=== PATIENT | female | born 1970 | race Caucasian/White ===

== ENCOUNTER → 2023-07-26 09:28 | Outpatient (REF) | payer BC, SELFPAY | LOC: HWEVLT 09:28 | PROVIDERS: ATTENDING PHYSICIAN Radiology Vascular & Interventional Radiology | DX: I83.893 Varicose veins of bilateral lower extremities with other complications (principal) | CPT/HCPCS: 93970 ==

== ENCOUNTER → 2023-10-04 08:40 | Outpatient (REF) | payer BC, SELFPAY ==
[2023-10-04 09:55] LABS: % Basophils 1.2 % (0-2); % Eosinophils 4.7 % (0-6); % Immature Granulocytes 0.2 % (0-0.5); % Lymphocytes 32.7 % (20.5-51.1); % Monocytes 11.7 % (1.7-9.3); % Neutrophils 49.5 % (42.2-75.2); Absolute Basophils 0.1 10^3/uL (0-0.2); Absolute Eosinophils 0.2 10^3/uL (0-0.7); Absolute Lymphocytes 1.4 10^3/uL (1.2-3.4); Absolute Monocytes 0.5 10^3/uL (0.1-0.6); Absolute Neutrophils 2.1 10^3/uL (1.4-6.5); Hematocrit 37.2 % (37.0-47.0); Hemoglobin 12.7 g/dL (12.0-16.0); Mean Corp Hgb Conc. 34.1 g/dL (33.0-37.0); Mean Corpuscular Hgb 32.7 pg (27.0-31.0); Mean Corpuscular Volume 95.9 fL (81.0-99.0); Mean Platelet Volume 8.9 fL (7.4-10.4); Nucleated Red Blood Cells % 0 %; Platelet Count 301 10^3/uL (130-400); Red Blood Cell Count 3.88 10^6/uL (4.20-5.40); Red Cell Dist. Width 12.9 % (11.5-14.5); White Blood Cell Count 4.3 10^3/uL (4.8-10.8)
[2023-10-04 10:31] LABS: ALT (SGPT) 17 U/L (0-35); AST (SGOT) 29 U/L (14-36); Albumin 4.5 g/dl (3.5-5.0); Alkaline Phosphatase 50 U/L (38-126); Blood Urea Nitrogen 18 mg/dl (7-17); Calcium 10.4 mg/dl (8.4-10.2); Carbon Dioxide 29 mmol/L (22-30); Chloride 100 mmol/L (98-107); Glucose 85 mg/dl (70-99); Potassium 4.5 mmol/L (3.5-5.1); Sodium 136 mmol/L (135-145); Total Bilirubin 0.6 mg/dl (0.2-1.3); Total Protein 7.4 g/dl (6.3-8.2); eGFR > 60.00
[2023-10-04 10:42] LABS: FSH 57.9 mIU/ml; Free T4 0.97 ng/dl (0.78-2.19)
[2023-10-04 10:52] LABS: Free T3 3.29 pg/ml (2.77-5.27)
[2023-10-04 10:56] LABS: TSH 1.05 uIU/ml (0.47-4.68)
[2023-10-04 10:58] LABS: Estradiol 128.2 pg/ml
== END ==
LOC: REG 08:40
PROVIDERS: ATTENDING PHYSICIAN Family Medicine; FAMILY PHYSICIAN Nurse Practitioner Family
DX: D05.80 Other specified type of carcinoma in situ of unspecified breast (principal); E28.39 Other primary ovarian failure; R68.82 Decreased libido; E03.9 Hypothyroidism, unspecified
CPT/HCPCS: 36415; 80053; 82670; 83001; 84403; 84439; 84443; 84481; 85025

== ENCOUNTER → 2024-01-03 17:03 | Outpatient (REF) | payer BC, SELFPAY ==
[2024-01-03 19:03] LABS: Estradiol 31.1 pg/ml
== END ==
LOC: REG 17:03
PROVIDERS: ATTENDING PHYSICIAN Nurse Practitioner Adult Health; FAMILY PHYSICIAN Nurse Practitioner Family
DX: E28.39 Other primary ovarian failure (principal); R68.82 Decreased libido
CPT/HCPCS: 36415; 82670; 84270; 84402; 84403

== ENCOUNTER → 2024-01-25 12:28 | Outpatient (REF) | payer BC, SELFPAY | LOC: WDC 12:28 | PROVIDERS: ATTENDING PHYSICIAN Obstetrics & Gynecology Gynecology; FAMILY PHYSICIAN Nurse Practitioner Family | DX: Z12.31 Encounter for screening mammogram for malignant neoplasm of breast (principal) | CPT/HCPCS: 77063; 77067 ==

== ENCOUNTER → 2024-04-02 09:53 | Outpatient (REF) | payer BC, SELFPAY ==
[2024-04-05 07:12] LABS: HPV, High Risk Not Detected; HPV, High Risk Source Cervical
== END ==
LOC: CPAP 09:53
PROVIDERS: ATTENDING PHYSICIAN Obstetrics & Gynecology Gynecology
DX: Z01.419 Encounter for gynecological examination (general) (routine) without abnormal findings (principal)
CPT/HCPCS: 87624

== ENCOUNTER → 2024-04-05 08:59 | Outpatient (REF) | payer BC, SELFPAY ==
[2024-04-05 10:01] LABS: % Basophils 1.3 % (0-2); % Eosinophils 6.9 % (0-6); % Immature Granulocytes 0.2 % (0-0.5); % Lymphocytes 34.5 % (20.5-51.1); % Monocytes 11.1 % (1.7-9.3); Absolute Basophils 0.1 10^3/uL (0-0.2); Absolute Eosinophils 0.3 10^3/uL (0-0.7); Absolute Lymphocytes 1.6 10^3/uL (1.2-3.4); Absolute Monocytes 0.5 10^3/uL (0.1-0.6); Absolute Neutrophils 2.1 10^3/uL (1.4-6.5); Hematocrit 35.4 % (37.0-47.0); Hemoglobin 12.1 g/dL (12.0-16.0); Mean Corp Hgb Conc. 34.2 g/dL (33.0-37.0); Mean Corpuscular Hgb 31.7 pg (27.0-31.0); Mean Corpuscular Volume 92.7 fL (81.0-99.0); Mean Platelet Volume 9.1 fL (7.4-10.4); Nucleated Red Blood Cells % 0 %; Platelet Count 297 10^3/uL (130-400); Red Blood Cell Count 3.82 10^6/uL (4.20-5.40); Red Cell Dist. Width 12.3 % (11.5-14.5); White Blood Cell Count 4.6 10^3/uL (4.8-10.8)
[2024-04-05 10:48] LABS: Progesterone 4.26 ng/ml
[2024-04-05 11:04] LABS: Estradiol 52.8 pg/ml
== END ==
LOC: REG 08:59
PROVIDERS: ATTENDING PHYSICIAN Nurse Practitioner Primary Care; FAMILY PHYSICIAN Nurse Practitioner Family
DX: E28.39 Other primary ovarian failure (principal); R68.82 Decreased libido
CPT/HCPCS: 36415; 82642; 82670; 83001; 84144; 84403; 85025

== ENCOUNTER → 2024-07-01 09:48 | Outpatient (REF) | payer BC, SELFPAY ==
[2024-07-01 11:29] LABS: % Eosinophils 5.3 % (0-6); % Immature Granulocytes 0.4 % (0-0.5); % Monocytes 10.2 % (1.7-9.3); % Neutrophils 59.1 % (42.2-75.2); Absolute Basophils 0.1 10^3/uL (0-0.2); Absolute Eosinophils 0.3 10^3/uL (0-0.7); Absolute Lymphocytes 1.2 10^3/uL (1.2-3.4); Absolute Monocytes 0.5 10^3/uL (0.1-0.6); Hematocrit 36.7 % (37.0-47.0); Hemoglobin 12.4 g/dL (12.0-16.0); Mean Corp Hgb Conc. 33.8 g/dL (33.0-37.0); Mean Corpuscular Hgb 32.5 pg (27.0-31.0); Mean Corpuscular Volume 96.3 fL (81.0-99.0); Nucleated Red Blood Cells % 0 %; Platelet Count 291 10^3/uL (130-400); Red Blood Cell Count 3.81 10^6/uL (4.20-5.40); Red Cell Dist. Width 12.9 % (11.5-14.5); White Blood Cell Count 5.1 10^3/uL (4.8-10.8)
[2024-07-01 11:54] LABS: FSH 22.7 mIU/ml
[2024-07-01 12:11] LABS: Estradiol 143.8 pg/ml
== END ==
LOC: REG 09:48
PROVIDERS: ATTENDING PHYSICIAN Registered Nurse; FAMILY PHYSICIAN Nurse Practitioner Family
DX: E28.39 Other primary ovarian failure (principal); R68.82 Decreased libido; D50.8 Other iron deficiency anemias
CPT/HCPCS: 36415; 82642; 82670; 83001; 84403; 85025

== ENCOUNTER → 2024-07-29 11:11 | Outpatient (REF) | payer BC, SELFPAY | LOC: REG 11:11 | PROVIDERS: ATTENDING PHYSICIAN Nurse Practitioner Family | DX: M54.50 Low back pain, unspecified (principal) | CPT/HCPCS: 72110; 72220 ==

== ENCOUNTER → 2024-09-18 08:48 | Outpatient (REF) | payer BC, SELFPAY ==
[2024-09-18 09:37] LABS: % Eosinophils 5.6 % (0-6); % Immature Granulocytes 0.4 % (0-0.5); % Lymphocytes 25.6 % (20.5-51.1); % Monocytes 9.7 % (1.7-9.3); % Neutrophils 57.7 % (42.2-75.2); Absolute Basophils 0.1 10^3/uL (0-0.2); Absolute Eosinophils 0.3 10^3/uL (0-0.7); Absolute Lymphocytes 1.3 10^3/uL (1.2-3.4); Absolute Monocytes 0.5 10^3/uL (0.1-0.6); Absolute Neutrophils 2.9 10^3/uL (1.4-6.5); Hematocrit 36.3 % (37.0-47.0); Hemoglobin 12.2 g/dL (12.0-16.0); Mean Corp Hgb Conc. 33.6 g/dL (33.0-37.0); Mean Corpuscular Hgb 32.2 pg (27.0-31.0); Mean Corpuscular Volume 95.8 fL (81.0-99.0); Mean Platelet Volume 8.7 fL (7.4-10.4); Nucleated Red Blood Cells % 0 %; Platelet Count 307 10^3/uL (130-400); Red Blood Cell Count 3.79 10^6/uL (4.20-5.40)
[2024-09-18 10:34] LABS: Estradiol 182.6 pg/ml
[2024-09-21 07:06] LABS: 5-a-Dihydrotestosterone, LC-MS 54.7 pg/mL (24.0-208.0)
== END ==
LOC: REG 08:48
PROVIDERS: ATTENDING PHYSICIAN Registered Nurse; FAMILY PHYSICIAN Nurse Practitioner Family
DX: R79.89 Other specified abnormal findings of blood chemistry (principal); Z01.84 Encounter for antibody response examination
CPT/HCPCS: 36415; 82642; 82670; 83001; 84270; 84402; 84403; 85025; 86765

== ENCOUNTER → 2024-12-10 08:48 | Outpatient (REF) | payer BC, SELFPAY ==
[2024-12-10 09:23] LABS: % Basophils 1.1 % (0-2); % Eosinophils 6.4 % (0-6); % Immature Granulocytes 0.2 % (0-0.5); % Monocytes 9.6 % (1.7-9.3); % Neutrophils 50.7 % (42.2-75.2); Absolute Basophils 0.1 10^3/uL (0-0.2); Absolute Eosinophils 0.3 10^3/uL (0-0.7); Absolute Lymphocytes 1.4 10^3/uL (1.2-3.4); Absolute Monocytes 0.4 10^3/uL (0.1-0.6); Absolute Neutrophils 2.2 10^3/uL (1.4-6.5); Hematocrit 36.6 % (37.0-47.0); Hemoglobin 12.5 g/dL (12.0-16.0); Mean Corp Hgb Conc. 34.2 g/dL (33.0-37.0); Mean Corpuscular Hgb 32.4 pg (27.0-31.0); Mean Corpuscular Volume 94.8 fL (81.0-99.0); Mean Platelet Volume 8.5 fL (7.4-10.4); Nucleated Red Blood Cells % 0 %; Platelet Count 277 10^3/uL (130-400); Red Blood Cell Count 3.86 10^6/uL (4.20-5.40); Red Cell Dist. Width 12.6 % (11.5-14.5); White Blood Cell Count 4.4 10^3/uL (4.8-10.8)
[2024-12-10 10:58] LABS: ALT (SGPT) 18 U/L (0-35); AST (SGOT) 25 U/L (14-36); Albumin 4.5 g/dl (3.5-5.0); Alkaline Phosphatase 42 U/L (38-126); Blood Urea Nitrogen 17 mg/dl (7-17); Calcium 10.2 mg/dl (8.4-10.2); Carbon Dioxide 30 mmol/L (22-30); Chloride 107 mmol/L (98-107); Glucose 85 mg/dl (70-99); Potassium 5.3 mmol/L (3.5-5.1); Sodium 140 mmol/L (135-145); Total Bilirubin 0.5 mg/dl (0.2-1.3); Total Protein 7.4 g/dl (6.3-8.2); eGFR > 60.00
[2024-12-10 11:22] LABS: TSH Reflex To Free T4 0.91 uIU/ml (0.47-4.68)
[2024-12-10 11:24] LABS: Estradiol 38.8 pg/ml
[2024-12-11 20:38] LABS: Hepatitis C Antibody Negative (Negative)
== END ==
LOC: REG 08:48
PROVIDERS: ATTENDING PHYSICIAN Registered Nurse; FAMILY PHYSICIAN Nurse Practitioner Family
DX: Z00.00 Encounter for general adult medical examination without abnormal findings (principal); Z11.59 Encounter for screening for other viral diseases; E28.39 Other primary ovarian failure; E34.9 Endocrine disorder, unspecified; D50.8 Other iron deficiency anemias; E29.1 Testicular hypofunction; L64.9 Androgenic alopecia, unspecified; L65.9 Nonscarring hair loss, unspecified
CPT/HCPCS: 36415; 80053; 82642; 82670; 83001; 84270; 84402; 84403; 84443; 85025; 86803

== ENCOUNTER → 2025-01-23 09:01 | Outpatient (REF) | payer BC, SELFPAY ==
[2025-01-23 10:31] LABS: HDL Cholesterol 95 mg/dl; LDL Cholesterol, Calculated 137 mg/dl; Very Low Density Lipoprotein 21 mg/dl (0-30)
[2025-01-23 10:46] LABS: FSH 80.3 mIU/ml
== END ==
LOC: REG 09:01
PROVIDERS: ATTENDING PHYSICIAN Registered Nurse; FAMILY PHYSICIAN Nurse Practitioner Family
DX: Z00.00 Encounter for general adult medical examination without abnormal findings (principal); E28.39 Other primary ovarian failure; R68.82 Decreased libido
CPT/HCPCS: 36415; 80061; 82642; 82670; 83001; 84403

== ENCOUNTER → 2025-01-27 12:31 | Outpatient (REF) | payer BC, SELFPAY | LOC: WDC 12:31 | PROVIDERS: ATTENDING PHYSICIAN Nurse Practitioner Family | DX: Z12.31 Encounter for screening mammogram for malignant neoplasm of breast (principal) | CPT/HCPCS: 77063; 77067 ==

== ENCOUNTER → 2025-03-17 08:11 | Outpatient (REF) | payer BC, SELFPAY | LOC: HWEVLT 08:11 | PROVIDERS: ATTENDING PHYSICIAN Radiology Diagnostic Radiology | DX: I83.891 Varicose veins of right lower extremity with other complications (principal) | CPT/HCPCS: 93971 ==

== ENCOUNTER → 2025-03-23 11:33 | Outpatient (REF) | payer BC, SELFPAY ==
[2025-03-23 12:23] LABS: Hematocrit 36.9 % (37.0-47.0); Hemoglobin 12.5 g/dL (12.0-16.0); Mean Corp Hgb Conc. 33.9 g/dL (33.0-37.0); Mean Corpuscular Volume 97.1 fL (81.0-99.0); Nucleated Red Blood Cells % 0 %; Platelet Count 344 10^3/uL (130-400); Red Cell Dist. Width 13.2 % (11.5-14.5)
[2025-03-23 13:07] LABS: FSH 76.5 mIU/ml
== END ==
LOC: REG 11:33
PROVIDERS: ATTENDING PHYSICIAN Nurse Practitioner Adult Health; FAMILY PHYSICIAN Nurse Practitioner Family
DX: E34.9 Endocrine disorder, unspecified (principal); E28.39 Other primary ovarian failure; D50.8 Other iron deficiency anemias
CPT/HCPCS: 36415; 82670; 83001; 84270; 84402; 84403; 85025

== ENCOUNTER → 2025-06-10 08:46 | Outpatient (REF) | payer BC, SELFPAY ==
[2025-06-10 10:40] LABS: FSH 15.9 mIU/ml
== END ==
LOC: REG 08:46
PROVIDERS: ATTENDING PHYSICIAN Registered Nurse; FAMILY PHYSICIAN Nurse Practitioner Family
DX: E29.1 Testicular hypofunction (principal); E34.9 Endocrine disorder, unspecified
CPT/HCPCS: 36415; 82642; 82670; 83001; 84270; 84402; 84403